=== PATIENT | female | born 2005 | race Two or more races ===

== ENCOUNTER 2025-04-04 10:27 | Emergency (ER) | payer OTHER ==
[~2025-04-04] VITALS: Ht 162.6 cm; Wt 58.0 kg
[2025-04-04] MEDS ORDERED: IBUP200T46 PO (10:35)
[2025-04-04 13:30] LABS: BASO # 0.0 10^3/uL (0.0-0.2); BASO % 0.6 % (0.0-1.0); EOS # 0.1 10^3/uL (0.0-0.5); EOS % 0.8 % (0.0-3.0); LYMPH # 2.1 10^3/uL (1.5-5.0); LYMPH % 30.2 % (24.0-44.0); MONO # 0.4 10^3/uL (0.0-0.8); MONO % 5.4 % (2.0-8.0); NEUTROPHILS # 4.5 10^3/uL (1.5-8.5); NEUTROPHILS % 62.7 % (36.0-66.0); PLATELET COUNT, AUTOMATED 247 10^3/uL (150-450)
[2025-04-04 13:41] LABS: ERYTHROCYTE SEDIMENTATION RATE 8 mm/hr (0-20)
[2025-04-04 13:53] LABS: ALT/SGPT 15 U/L (7.0-40); AST/SGOT 15 U/L (<34); C REACTIVE PROTEIN QUANTITATIV < 0.50 MG/DL (<1.0); CALCIUM LEVEL 9.5 MG/DL (8.5-10.1); CARBON DIOXIDE LEVEL 25 MMOL/L (20-31); CHLORIDE LEVEL 106 MMOL/L (98-107); CREATININE FOR GFR 0.89 MG/DL (0.55-1.30); GLOMERULAR FILTRATION RATE > 90.0 (>60); POTASSIUM SERUM 4.4 MMOL/L (3.5-5.1); SODIUM LEVEL 142 MMOL/L (136-145)
[2025-04-04 14:00] VITALS: BP 123/75; TEMP 96.7; O2SAT 96
== END 2025-04-04 14:10 | disposition home or self-care (01) ==
LOC: M ED 10:27
DX: R51.9 Headache, unspecified (principal); Z79.1 Long term (current) use of non-steroidal anti-inflammatories (NSAID)